=== PATIENT | male | born 1970 | race Caucasian/White ===

== ENCOUNTER 2017-09-17 14:20 | Emergency (ER) | payer SELFPAY ==
[~2017-09-17] VITALS: Ht 180.3 cm; Wt 81.5 kg
[~2017-09-17 14:20] MED LIST: DICL50 PO; LORT5TAB PO; Z.0.NO CURRENT MEDS
[2017-09-17 14:22] VITALS: BP 141/74; PULSE 88; RESP 18; TEMP 98.8; O2SAT 100
[2017-09-17] MEDS ORDERED: oxyCODONE/ACETAMINOPHEN 5 MG/325 MG TAB PO ONE (15:45)
--- NOTE | 2017-09-17 15:48 | PD ---
HPI Chief Complaint: Musculoskeletal Complaint Time Seen by Provider: 15:33 Travel History International Travel<30 days: No Contact w/Intl Traveler<30days: No Traveled to known affect area: No History of Present Illness HPI This is a 47-year-old male who presents to the emergency department having been throwing concrete this morning when he felt a pop in his right elbow and subsequently had severe pain, constant, associated with some numbness in his hand, with no other injuries. The patient has pain with moving his arm and says the pain feels like it's inside the elbow joint, and is sharp and throbbing. PFSH Past Medical History Arthritis: No Asthma: Yes Blood Disorders: No Anxiety: Yes Depression: No Heart Rhythm Problems: No Cancer: No Cardiovascular Problems: Yes High Cholesterol: No Chest Pain: Yes Congestive Heart Failure: No COPD: No Cerebrovascular Accident: No Endocrine: No GERD: Yes Genitourinary: Yes Headaches: No Hepatitis: No Hiatal Hernia: No Hypertension: No Immune Disorder: No Kidney Stones: Yes Musculoskeletal: Yes Neurologic: Yes Psychiatric: No Reproductive: No Respiratory: No Migraines: Yes Myocardial Infarction: No Seizures: No Sleep Apnea: No Ulcer: Yes Tetanus Vaccination: Unknown Influenza Vaccination: No Past Surgical History Abdominal Surgery: Yes (cholecystectomy) Appendectomy: Yes Cardiac Surgery: No Cholecystectomy: Yes Ear Surgery: No Endocrine Surgery: No Eye Surgery: No Genitourinary Surgery: No Oral Surgery: No Pacemaker: No Thoracic Surgery: No Other Surgery: Yes (ARTHROSCOPY RIGHT SHOULDER) Social History Alcohol Use: Yes (once in a while) Tobacco Use: No Substance Use: No Allergies-Medications (Allergen,Severity, Reaction): Coded Allergies: [place] And Derivatives (Unverified Allergy, Unknown, 09/17/17) fructose (Unverified Allergy, Unknown, 09/17/17) mold (Unverified Allergy, Unknown, 09/17/17) HISTORY AND PHYSICAL STATES PTS ALLERGIC TO FRUITS sulfur dioxide (Unverified Allergy, Unknown, 09/17/17) HISTORY AND PHYSICAL STATES PTS ALLERGIC TO FRUITS Reported Meds & Prescriptions Reported Meds & Active Scripts Active No Active Prescriptions or Reported Medications Review of Systems General / Constitutional: No: Fever, Chills Cardiovascular: No: Chest Pain or Discomfort Respiratory: No: Shortness of Breath Physical Exam Narrative GENERAL: Well-appearing, no acute distress, nontoxic SKIN: Warm and dry. HEAD: Atraumatic. Normocephalic. ENT: No nasal bleeding or discharge. Moist mucous membranes MUSCULOSKELETAL: Tender to palpation over the medial epicondyle of the right elbow with mild joint effusion, severe pain with flexion or extension at the elbow, and pain with flexion and extension of the wrist that radiates up to the elbow. No obvious tendon rupture or tenderness over the biceps. Vascular: 2+ right radial pulse with normal capillary refill. NEUROLOGICAL: Awake and alert. No obvious cranial nerve deficits. Motor and sensation is intact in the median, ulnar and radial distributions of the right hand. PSYCHIATRIC: Appropriate mood and affect; insight and judgment normal. Data Data Last Documented VS Vital Signs Date Time Temp Pulse Resp B/P (MAP) Pulse Ox O2 Delivery O2 Flow Rate FiO2 09/17/17 14:22 98.8 88 18 141/74 (96) 100 Room Air Orders Orders Elbow, Complete (4 Vws) (09/17/17 ) Oxycodone-Acetamin 5-325 Mg (Percocet (09/17/17 15:45) MDM Medical Decision Making Medical Screen Exam Complete: Yes Emergency Medical Condition: Yes Differential Diagnosis Elbow sprain, ligament rupture, tendon rupture, avulsion fracture Narrative Course This is a 47-year-old male who presents to the emergency department having sustained an injury to his right elbow where he heard a pop. He has limited range of motion secondary to pain. He has a normal neurovascular exam. X-ray was obtained to rule out an avulsion fracture. Suspect the patient has a ligamentous injury. Patient will require follow-up with orthopedics. If x-ray is negative, I would place the patient in a sling and give him a referral for orthopedics as well as [facility] as the patient is uninsured. I think a short course of opiate therapy as well as anti-inflammatories would be warranted. Scripts No Active Prescriptions or Reported Meds Susi Shirley MD Sep 17, 2017 15:48
--- NOTE | 2017-09-17 15:54 | PD ---
Physical Exam Date Seen by Provider: Sep 17, 2017 Time Seen by Provider: 15:53 Narrative 47-year-old male presents to the emergency department for evaluation of right elbow injury. Please see my attending physician's documentation, Dr. Shirley. X -ray of the right elbow is ordered. Data Data Last Documented VS Vital Signs Date Time Temp Pulse Resp B/P (MAP) Pulse Ox O2 Delivery O2 Flow Rate FiO2 09/17/17 14:22 98.8 88 18 141/74 (96) 100 Room Air Orders Orders Oxycodone-Acetamin 5-325 Mg (Percocet (09/17/17 15:45) Elbow, Limited (Ap&Lat) (09/17/17 ) MDM Medical Record Reviewed: Yes Supervised Visit with [place]: No Interpretation(s) x-ray of the right elbow - CONCLUSION: Unremarkable limited examination of the right elbow. Differential Diagnosis Fracture versus ligamentous injury versus strain Narrative Course 47-year-old male presents to the emergency department for evaluation of right elbow injury. X-ray of the right elbow is ordered and pending. X-ray of the right elbow is unremarkable. Patient is provided a sling. He is instructed to follow-up with orthopedist in the [facility]. He'll be given a short course for [place] and ibuprofen. Patient verbalizes agreement and understanding. The patient was discharged in stable condition with instructions, including return instructions and follow up instructions. Diagnosis Primary Impression: Sprain of right elbow Qualified Codes: S53.401A - Unspecified sprain of right elbow, initial encounter Referrals: [facility] call for appointment Orthopedist call for appointment Patient Instructions: Elbow Sprain (ED), General Instructions Departure Forms: Tests/Procedures, Work Release Enter return to work date: Sep 20, 2017 Additional Instruction: Take [place] as started as needed for moderate to severe pain. Take ibuprofen for mild to moderate pain. Wear sling for comfort. Follow-up with orthopedist and the [facility]. Return to the emergency department for any acute worsening of symptoms Med/Other Pt SpecificInfo: Prescription(s) given Scripts Ibuprofen (Ibuprofen) 800 Mg Tab 800 MG PO TID Y for PAIN SCALE 1 TO 10, #21 TAB 0 Refills Prov: Yaa Anderson 09/17/17 Hydrocodone-Acetaminophen ([place]) 5 Mg-325 Mg Tab 1 TAB PO Q6H Y for PAIN, #12 TAB 0 Refills Prov: Yaa Adnerson 09/17/17 Disposition: 01 DISCHARGE HOME Condition: Stable Yaa Anderson Sep 17, 2017 15:54
--- NOTE | 2017-09-17 16:10 | RADRPT ---
EXAM DATE/TIME: 09/17/2017 15:47 [facility] COMPARISON: No previous studies available for comparison. INDICATIONS : Lifting concrete blocks and hurt elbow. MEDICAL HISTORY : None. SURGICAL HISTORY : None. ENCOUNTER: Initial ACUITY: 1 day PAIN SCORE: 8/10 LOCATION: Right elbow FINDINGS: Two view examination of the right elbow demonstrates no soft tissue swelling, joint effusion, fractur e or dislocation. Bony mineralization is normal. CONCLUSION: Unremarkable limited examination of the right elbow. Reji Nayak MD on September 17, 2017 at 16:08 Board Certified Radiologist. This report was verified electronically.
[2017-09-17] MEDS ORDERED: NORC5TAB PO (16:17)
[2017-09-17] MEDS ORDERED: IBUP1TAB7 PO (16:17)
== END 2017-09-17 16:36 | disposition home or self-care (01) ==
LOC: NEPD 14:20
DX: S53.401A Unspecified sprain of right elbow, initial encounter (principal); J45.909 Unspecified asthma, uncomplicated; F41.9 Anxiety disorder, unspecified; K21.9 Gastro-esophageal reflux disease without esophagitis; X50.9XXA Other and unspecified overexertion or strenuous movements or postures, initial encounter; Z87.442 Personal history of urinary calculi
CPT/HCPCS: 73070; 99283

== ENCOUNTER 2017-11-22 11:48 | Emergency (ER) | payer SELFPAY ==
[~2017-11-22] VITALS: Ht 180.3 cm; Wt 81.5 kg
[~2017-11-22 11:48] MED LIST changes: -DICL50 PO; +IBUP1TAB7 PO; -LORT5TAB PO; +NORC5TAB PO; -Z.0.NO CURRENT MEDS
[2017-11-22 11:49] VITALS: BP 137/92; PULSE 79; RESP 16; TEMP 98.1; O2SAT 100
[2017-11-22] MEDS ORDERED: IOHEXOL 350 MG/ML 10 ML VIAL (for RAD DIAG) IVCONTRAST ONE (11:49)
[2017-11-22] MEDS ORDERED: SODIUM CHLOR 0.9% 1000 ML INJ 1,000 ML IV SCH (13:23)
[2017-11-22] MEDS ORDERED: MORPHINE SULFATE 4 MG/ML INJ IV PUSH ONE (13:30)
[2017-11-22] MEDS ORDERED: ONDANSETRON HCL 4 MG/2 ML VIAL IVP ONE (13:30)
--- NOTE | 2017-11-22 14:06 | PD ---
HPI Chief Complaint: Lump, Cyst, Hernia Time Seen by Provider: 13:10 Travel History International Travel<30 days: No Contact w/Intl Traveler<30days: No Traveled to known affect area: No History of Present Illness HPI 47-year-old male that presents to the ED for evaluation of pain in the abdomen and possible hernia. Patient states that he has a significant history multiple surgeries to his abdomen including one hernia repair in the past as well as removal of part of his colon secondary to a tumor or an obstruction. 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 Per patient she's been doing well until yesterday when he was bending down to filler picker something and he felt a pop on his left lower quadrant and felt like his intestines were coming out. Per patient he himself pullet back in. Per patient she did have some discomfort and received feeling them and since then he has not been feeling well. Per patient he has no abdominal pain on the same area but he doesn't have the bulging anymore. Per patient he had a hernia repair with mesh done by a worker's comp doctor. He denies any fevers chills or sweats. No bowel movement or urinary symptoms. The patient his discomfort is 4 out of 10 and the left lower quadrant. Denies any chest pain or shortness of breath. No recent surgeries. PFSH Past Medical History Arthritis: No Asthma: Yes Blood Disorders: No Anxiety: Yes Depression: No Heart Rhythm Problems: No Cancer: No Cardiovascular Problems: Yes High Cholesterol: No Chest Pain: Yes Congestive Heart Failure: No COPD: No Cerebrovascular Accident: No Endocrine: No GERD: Yes Genitourinary: Yes Headaches: No Hepatitis: No Hiatal Hernia: No Hypertension: No Immune Disorder: No Kidney Stones: Yes Musculoskeletal: Yes Neurologic: Yes Psychiatric: No Reproductive: No Respiratory: No Migraines: Yes Myocardial Infarction: No Seizures: No Sleep Apnea: No Ulcer: Yes Past Surgical History Abdominal Surgery: Yes (cholecystectomy) Appendectomy: Yes Cardiac Surgery: No Cholecystectomy: Yes Ear Surgery: No Endocrine Surgery: No Eye Surgery: No Genitourinary Surgery: No Oral Surgery: No Pacemaker: No Thoracic Surgery: No Other Surgery: Yes (ARTHROSCOPY RIGHT SHOULDER) Social History Alcohol Use: Yes (once in a while) Tobacco Use: No Substance Use: No Allergies-Medications (Allergen,Severity, Reaction): Coded Allergies: [place] And Derivatives (Unverified Allergy, Unknown, 09/17/17) fructose (Unverified Allergy, Unknown, 09/17/17) mold (Unverified Allergy, Unknown, 09/17/17) HISTORY AND PHYSICAL STATES PTS ALLERGIC TO FRUITS sulfur dioxide (Unverified Allergy, Unknown, 09/17/17) HISTORY AND PHYSICAL STATES PTS ALLERGIC TO FRUITS Reported Meds & Prescriptions Reported Meds & Active Scripts Active Diclofenac Sodium DR (Diclofenac Sodium) 75 Mg Tabdr 75 Mg PO BID PRN Ibuprofen 800 Mg Tab 800 Mg PO TID PRN [place] (Hydrocodone-Acetaminophen) 5 Mg-325 Mg Tab 1 Tab PO Q6H PRN Review of Systems Except as stated in HPI: all other systems reviewed are Neg Physical Exam Narrative GENERAL: SKIN: Warm and dry. HEAD: Atraumatic. Normocephalic. EYES: Pupils equal and round. No scleral icterus. No injection or drainage. ENT: No nasal bleeding or discharge. Mucous membranes pink and moist. Tongue is midline. No uvula deviation. NECK: Trachea midline. No JVD. CARDIOVASCULAR: Regular rate and rhythm. No murmurs, S3, S4. RESPIRATORY: No accessory muscle use. Clear to auscultation. Breath sounds equal bilaterally. GASTROINTESTINAL: Abdomen soft, old surgical scars noted in the abdomen, patient does have reproducible pain on the left lower quadrant nondistended. Hepatic and splenic margins not palpable. MUSCULOSKELETAL: Extremities without clubbing, cyanosis, or edema. No obvious deformities. Range of motion of the upper and lower extremities bilaterally. 2 + pulses bilaterally. NEUROLOGICAL: Awake and alert. No obvious cranial nerve deficits. Motor grossly within normal limits. Five out of 5 muscle strength in the arms and legs. Normal speech. PSYCHIATRIC: Appropriate mood and affect; insight and judgment normal. Data Data Last Documented VS Vital Signs Date Time Temp Pulse Resp B/P (MAP) Pulse Ox O2 Delivery O2 Flow Rate FiO2 11/22/17 11:49 98.1 79 16 137/92 (107) 100 Room Air Orders Orders Complete Blood Count With Diff (11/22/17 13:23) Comprehensive Metabolic Panel (11/22/17 13:23) Lipase (11/22/17 13:23) Prothrombin Time / Inr (Pt) (11/22/17 13:23) Act Partial Throm Time (Ptt) (11/22/17 13:23) Ct Abd/Pel W Iv Contrast(Rout) (11/22/17 13:23) Iv Access Insert/Monitor (11/22/17 13:23) Morphine Inj (Morphine Inj) (11/22/17 13:30) Ondansetron Inj (Zofran Inj) (11/22/17 13:30) Sodium Chlor 0.9% 1000 Ml Inj (Ns 1000 M (11/22/17 13:23) Iohexol 350 Inj (Omnipaque 350 Inj) (11/22/17 11:49) Ed Discharge Order (11/22/17 15:47) Labs Laboratory Tests Test 11/22/17 12:40 11/22/17 13:40 White Blood Count 7.5 TH/MM3 Red Blood Count 5.52 MIL/MM3 Hemoglobin 17.1 GM/DL Hematocrit 48.6 % Mean Corpuscular Volume 88.0 FL Mean Corpuscular Hemoglobin 31.0 PG Mean Corpuscular Hemoglobin Concent 35.2 % Red Cell Distribution Width 13.3 % Platelet Count 193 TH/MM3 Mean Platelet Volume 8.5 FL Neutrophils (%) (Auto) 68.6 % Lymphocytes (%) (Auto) 19.3 % Monocytes (%) (Auto) 7.9 % Eosinophils (%) (Auto) 3.4 % Basophils (%) (Auto) 0.8 % Neutrophils # (Auto) 5.1 TH/MM3 Lymphocytes # (Auto) 1.4 TH/MM3 Monocytes # (Auto) 0.6 TH/MM3 Eosinophils # (Auto) 0.3 TH/MM3 Basophils # (Auto) 0.1 TH/MM3 CBC Comment DIFF FINAL Differential Comment Prothrombin Time 11.2 SEC Prothromb Time International Ratio 1.1 RATIO Activated Partial Thromboplast Time 25.5 SEC Blood Urea Nitrogen 11 MG/DL Creatinine 1.28 MG/DL Random Glucose 67 MG/DL Total Protein 7.8 GM/DL Albumin 4.3 GM/DL Calcium Level 9.7 MG/DL Alkaline Phosphatase 62 U/L Aspartate Amino Transf (AST/SGOT) 37 U/L Alanine Aminotransferase (ALT/SGPT) 33 U/L Total Bilirubin 0.7 MG/DL Sodium Level 138 MEQ/L Potassium Level 4.4 MEQ/L Chloride Level 103 MEQ/L Carbon Dioxide Level 29.3 MEQ/L Anion Gap 6 MEQ/L Estimat Glomerular Filtration Rate 61 ML/MIN Lipase 184 U/L MDM Medical Decision Making Medical Screen Exam Complete: Yes Emergency Medical Condition: Yes Medical Record Reviewed: Yes Interpretation(s) CBC & BMP Diagram 11/22/17 12:40 11/22/17 13:40 Total Protein 7.8, Albumin 4.3, Calcium Level 9.7, Alkaline Phosphatase 62, Aspartate Amino Transf (AST/SGOT) 37, Alanine Aminotransferase (ALT/SGPT) 33, Total Bilirubin 0.7 Last Impressions Abdomen/Pelvis CT 11/22/17 1323 Signed Impressions: Service Date/Time: Wednesday, November 22, 2017 14:40 - CONCLUSION: Negative for an acute process. Dionte Vides MD FACR Differential Diagnosis Acute abdomen versus bowel obstruction versus hernia versus strangulated hernia versus gastritis versus gastroenteritis Narrative Course 47-year-old female that presents to the ED for evaluation of abdominal pain and possible hernia. Patient was properly examined and was found to have signs and symptoms which appear to be consistent with likely hernia. Patient does not appear to have any masses on my examination but he is very tender on exam in the same spot where per patient he was able to push back the mass. He does have a significant history of bowel obstruction in the past and states that he feels anorexic. We'll do labs and imaging troponin sign of obstruction as patient has had multiple surgeries in the past. Labs and imaging showed no sign of acute disease. Case was discussed in my attending who evaluated the patient and agrees the patient should follow-up outpatient. Patient was reassured. Patient was given a prescription for diclofenac sodium and told to wear abdominal binder. Follow up with PCP. See ED for worsening symptoms. Diagnosis Primary Impression: Hernia Referrals: [facility] Patient Instructions: General Instructions Additional Instructions: Take medication as prescribed. Follow with PCP and Gen. surgery as needed. See ED worsening symptoms. Med/Other Pt SpecificInfo: Prescription(s) given Scripts Diclofenac Sodium DR (Diclofenac Sodium DR) 75 Mg Tabdr 75 MG PO BID Y for PAIN SCALE 1 TO 10, #20 TAB 0 Refills Prov: Susi Shirley MD 11/22/17 Disposition: 01 DISCHARGE HOME Condition: Stable Elbert Gramajo Nov 22, 2017 14:06
[2017-11-22 14:09] LABS: AUTOMATED NEUTROPHIL # 5.1 TH/MM3 (1.8-7.7); BASOPHIL # 0.1 TH/MM3 (0-0.2); BASOPHIL % 0.8 % (0.0-2.0); EOSINOPHIL # 0.3 TH/MM3 (0-0.4); EOSINOPHIL % 3.4 % (0.0-4.0); HEMATOCRIT 48.6 % (39.0-51.0); HEMOGLOBIN 17.1 GM/DL (13.0-17.0); LYMPH % 19.3 % (9.0-44.0); LYMPHOCYTE # 1.4 TH/MM3 (1.0-4.8); MEAN CORPUSCULAR HGB CONC 35.2 % (32.0-36.0); MEAN PLATELET VOLUME 8.5 FL (7.0-11.0); MONO % 7.9 % (0.0-8.0); MONOCYTE # 0.6 TH/MM3 (0-0.9); NEUT % 68.6 % (16.0-70.0); PLATELET COUNT 193 TH/MM3 (150-450); RED BLOOD COUNT 5.52 MIL/MM3 (4.50-5.90); RED CELL DISTRIBUTION WIDTH 13.3 % (11.6-17.2); WHITE BLOOD COUNT 7.5 TH/MM3 (4.0-11.0)
[2017-11-22 14:14] LABS: INTERNATIONAL NORMALIZED RATIO 1.1 RATIO; PROTHROMBIN TIME - PATIENT 11.2 SEC (9.8-11.6)
[2017-11-22 14:29] LABS: ALT (GPT) 33 U/L (12-78)
[2017-11-22 14:30] LABS: ALBUMIN 4.3 GM/DL (3.4-5.0); AST (GOT) 37 U/L (15-37); BICARBONATE 29.3 MEQ/L (21.0-32.0); BLOOD UREA NITROGEN 11 MG/DL (7-18); CALCIUM 9.7 MG/DL (8.5-10.1); CHLORIDE 103 MEQ/L (98-107); CREATININE 1.28 MG/DL (0.60-1.30); GLOMERULAR FILTRATION RATE 61 ML/MIN (>89); GLUCOSE,RANDOM 67 MG/DL (74-106); LIPASE 184 U/L (73-393); SODIUM (NA) 138 MEQ/L (136-145)
[2017-11-22 14:31] LABS: ALKALINE PHOSPHATASE 62 U/L (45-117); TOTAL BILIRUBIN ADULT 0.7 MG/DL (0.2-1.0); TOTAL PROTEIN 7.8 GM/DL (6.4-8.2)
--- NOTE | 2017-11-22 15:26 | RADRPT ---
EXAM DATE/TIME: 11/22/2017 14:40 [facility] COMPARISON: No previous studies available for comparison. INDICATIONS : Bulge in abdomen, pain, nausea and vomitng IV CONTRAST: 95 cc Omnipaque 350 (iohexol) IV ORAL CONTRAST: No oral contrast ingested. RADIATION DOSE: 6.64 CTDIvol (mGy) MEDICAL HISTORY : Cardiovascular disease. Ulcers. Renal calculi. SURGICAL HISTORY : Cholecystectomy. ENCOUNTER: Initial ACUITY: 1 day PAIN SCALE: 8/10 LOCATION: diffuse abdomen TECHNIQUE: Volumetric scanning of the abdomen and pelvis was performed. Using automated exposure control and ad justment of the mA and/or kV according to patient size, radiation dose was kept as low as reasonably achievable to obtain optimal diagnostic quality images. DICOM format image data is available electro nically for review and comparison. FINDINGS: The lung base is are clear. The liver is free of focal defects. Surgical clips gallbladder fossa Spleen and pancreas unremarkable The pancreas appears normal There is symmetrical renal function There is no ascites or adenopathy There no inflammatory changes in the abdomen Pelvic contents are unremarkable The abdominal wall is intact. Review of bone windows reveals only degenerative changes. CONCLUSION: Negative for an acute process. Dionte Vides MD FACR on November 22, 2017 at 15:21 Board Certified Radiologist. This report was verified electronically.
[2017-11-22] MEDS ORDERED: DICL75TA PO (15:39)
--- NOTE | 2017-11-22 15:49 | PD ---
Data Data Last Documented VS Vital Signs Date Time Temp Pulse Resp B/P (MAP) Pulse Ox O2 Delivery O2 Flow Rate FiO2 11/22/17 11:49 98.1 79 16 137/92 (107) 100 Room Air Orders Orders Complete Blood Count With Diff (11/22/17 13:23) Comprehensive Metabolic Panel (11/22/17 13:23) Lipase (11/22/17 13:23) Prothrombin Time / Inr (Pt) (11/22/17 13:23) Act Partial Throm Time (Ptt) (11/22/17 13:23) Ct Abd/Pel W Iv Contrast(Rout) (11/22/17 13:23) Iv Access Insert/Monitor (11/22/17 13:23) Morphine Inj (Morphine Inj) (11/22/17 13:30) Ondansetron Inj (Zofran Inj) (11/22/17 13:30) Sodium Chlor 0.9% 1000 Ml Inj (Ns 1000 M (11/22/17 13:23) Iohexol 350 Inj (Omnipaque 350 Inj) (11/22/17 11:49) Labs Laboratory Tests Test 11/22/17 12:40 11/22/17 13:40 White Blood Count 7.5 TH/MM3 Red Blood Count 5.52 MIL/MM3 Hemoglobin 17.1 GM/DL Hematocrit 48.6 % Mean Corpuscular Volume 88.0 FL Mean Corpuscular Hemoglobin 31.0 PG Mean Corpuscular Hemoglobin Concent 35.2 % Red Cell Distribution Width 13.3 % Platelet Count 193 TH/MM3 Mean Platelet Volume 8.5 FL Neutrophils (%) (Auto) 68.6 % Lymphocytes (%) (Auto) 19.3 % Monocytes (%) (Auto) 7.9 % Eosinophils (%) (Auto) 3.4 % Basophils (%) (Auto) 0.8 % Neutrophils # (Auto) 5.1 TH/MM3 Lymphocytes # (Auto) 1.4 TH/MM3 Monocytes # (Auto) 0.6 TH/MM3 Eosinophils # (Auto) 0.3 TH/MM3 Basophils # (Auto) 0.1 TH/MM3 CBC Comment DIFF FINAL Differential Comment Prothrombin Time 11.2 SEC Prothromb Time International Ratio 1.1 RATIO Activated Partial Thromboplast Time 25.5 SEC Blood Urea Nitrogen 11 MG/DL Creatinine 1.28 MG/DL Random Glucose 67 MG/DL Total Protein 7.8 GM/DL Albumin 4.3 GM/DL Calcium Level 9.7 MG/DL Alkaline Phosphatase 62 U/L Aspartate Amino Transf (AST/SGOT) 37 U/L Alanine Aminotransferase (ALT/SGPT) 33 U/L Total Bilirubin 0.7 MG/DL Sodium Level 138 MEQ/L Potassium Level 4.4 MEQ/L Chloride Level 103 MEQ/L Carbon Dioxide Level 29.3 MEQ/L Anion Gap 6 MEQ/L Estimat Glomerular Filtration Rate 61 ML/MIN Lipase 184 U/L MDM Supervised Visit with [place]: Yes Narrative Course The history, exam, and medical decision-making in the associated midlevel provider note were completed with my assistance. I reviewed and agree with the findings presented. I attest that I had a [id number] encounter with the patient on the same day, and personally performed and documented my assessment and findings in the medical record. *My assessment and Findings: This is a 47-year-old male who presents to the emergency department having felt his bowels, out of his abdomen yesterday. He has a history of multiple ventral hernias which have it repaired. CT was obtained which demonstrates no evident obstruction. Patient is uninsured. He is going to have difficult time getting this hernia repaired. I recommended he follow-up with [facility] to get primary care established. I also recommended that he use an abdominal binder. Ultimately patient has no surgical emergency and will be discharged home. Scripts Diclofenac Sodium DR (Diclofenac Sodium DR) 75 Mg Tabdr 75 MG PO BID Y for PAIN SCALE 1 TO 10, #20 TAB 0 Refills Prov: Susi Shirley MD 11/22/17 Susi Shirley MD Nov 22, 2017 15:49
[2017-11-22 16:15] VITALS: BP 109/63; PULSE 61; RESP 18; O2SAT 99
== END 2017-11-22 16:22 | disposition home or self-care (01) ==
LOC: NEPD 11:48
DX: R10.9 Unspecified abdominal pain (principal); J45.909 Unspecified asthma, uncomplicated; F41.9 Anxiety disorder, unspecified; K21.9 Gastro-esophageal reflux disease without esophagitis; Z87.442 Personal history of urinary calculi
CPT/HCPCS: 74177; 80053; 83690; 85025; 85610; 85730; 96361; 96374; 96375; 99285; J2270; J2405; J7030; Q9967